=== PATIENT | female | born 1970 | race Caucasian/White ===

== ENCOUNTER 2017-01-28 00:10 | Emergency (ER) | payer MEDICAID ==
[~2017-01-28] VITALS: Ht 170.2 cm; Wt 54.4 kg
[2017-01-28] MEDS ORDERED: HYDROcodone-ACET 10/325MG TAB PO ONE (07:45)
[2017-01-28 08:13] VITALS: BP 122/96
== END 2017-01-28 10:00 | disposition left against medical advice (07) ==
LOC: ER 00:10
DX: G43.909 Migraine, unspecified, not intractable, without status migrainosus (principal); F17.210 Nicotine dependence, cigarettes, uncomplicated; J45.909 Unspecified asthma, uncomplicated; Z90.710 Acquired absence of both cervix and uterus
CPT/HCPCS: 70450

== ENCOUNTER 2019-04-13 07:09 | Emergency (ER) | payer MEDICAID ==
[~2019-04-13] VITALS: Ht 180.3 cm; Wt 86.2 kg
[2019-04-13 07:29] VITALS: BP 169/73
[2019-04-13] MEDS ORDERED: HYDROcodone-ACET 10/325MG TAB PO ONE (08:00)
[2019-04-13] MEDS ORDERED: KETOROLAC TROMETH 60MG/2ML VIAL IM ONE (08:00)
== END 2019-04-13 08:34 | disposition home or self-care (01) ==
LOC: ER 07:11
DX: M54.42 Lumbago with sciatica, left side (principal); G89.29 Other chronic pain; F17.210 Nicotine dependence, cigarettes, uncomplicated; J45.909 Unspecified asthma, uncomplicated; Z90.710 Acquired absence of both cervix and uterus
CPT/HCPCS: 96372; 99283; J1885

== ENCOUNTER 2019-04-14 00:28 | Emergency (ER) | payer MEDICAID ==
[~2019-04-14] VITALS: Ht 180.3 cm; Wt 98.9 kg
[2019-04-14 03:59] VITALS: BP 153/85
[2019-04-14] MEDS ORDERED: HYDROcodone-ACET 10/325MG TAB PO ONE (04:45)
[2019-04-14] MEDS ORDERED: BACLOFEN 10 MG TAB PO ONE (04:45)
== END 2019-04-14 06:58 | disposition home or self-care (01) ==
LOC: ER 00:28
DX: S33.5XXA Sprain of ligaments of lumbar spine, initial encounter (principal); J45.909 Unspecified asthma, uncomplicated; F17.210 Nicotine dependence, cigarettes, uncomplicated; X50.9XXA Other and unspecified overexertion or strenuous movements or postures, initial encounter; Y93.89 Activity, other specified; Y92.128 Other place in nursing home as the place of occurrence of the external cause; Y99.8 Other external cause status